=== PATIENT | male | born 1960 | race Caucasian/White ===

== ENCOUNTER 2024-12-17 18:35 | Emergency (ER) | payer BC, SELFPAY ==
[2024-12-17 18:50] VITALS: BP 165/90; PULSE 76; RESP 16; TEMP 36.6; O2SAT 100; BMI 31.4
[2024-12-17 20:54] VITALS: BP 132/89
[2024-12-17 21:00] VITALS: PULSE 82; RESP 16; O2SAT 99
[2024-12-17 21:55] VITALS: BP 132/89; PULSE 80; O2SAT 99
== END 2024-12-17 21:57 | disposition left against medical advice (07) ==
PROVIDERS: Emergency Provider Family Medicine
DX: Z53.21 Procedure and treatment not carried out due to patient leaving prior to being seen by health care provider (principal)